=== PATIENT | female | born 1980 | race Caucasian/White ===

== ENCOUNTER 2018-06-01 16:44 | Inpatient (IN) ==
--- NOTE | 2018-06-01 17:30 | P.HPOB ---
History of Present Illness Service: ob Primary Care Physician: NOT REQUIRED Chief Complaint: SROM 1530, UC's q 2 min History of Present Illness: pt is 38 yo 36 4/7 wks w srom 1530 and onset of strong contractions after Weeks Gestation:: 36 Para: 1 : 1 Last menstrual period: 09/18/17 Total # of Miscarriage(s): 0 Total # of Abortions (Spontaneous & Elective): 0 Review of Systems All other systems reviewed negative except as stated in HPI Constitutional: Denies anorexia, Denies body ache(s), Denies chills, Denies daytime sleepiness, Denies excessive sweating, Denies fatigue, Denies fever(s), Denies headache(s), Denies increased appetite, Denies lack of energy, Denies malaise, Denies night sweats, Denies weakness, Denies weight gain, Denies weight loss, Denies other Eyes: Reports blurry vision Ears, Nose, Mouth, and Throat: Denies abnormal hearing, Denies bleeding gums, Denies bad breath, Denies change in voice, Denies dental pain, Denies difficulty swallowing, Denies dizziness, Denies dizziness, Denies dry mouth, Denies ear discharge, Denies ear pain, Denies facial pain, Denies headache(s), Denies hearing loss, Denies hoarseness, Denies lip swelling, Denies nosebleed, Denies mouth lesions, Denies mouth pain, Denies nasal congestion, Denies nasal discharge, Denies nasal obstruction, Denies nasal trauma, Denies neck lump, Denies neck pain, Denies nose pain, Denies pain with swallowing, Denies poor balance, Denies post nasal drip, Denies ringing in the ears, Denies sinus pain, Denies sinus pressure, Denies sore throat, Denies throat swelling, Denies tongue swelling, Denies other Cardiovascular: Denies bluish discoloration of hand/feet, Denies chest pain, Denies chest pain at rest, Denies chest pain with activity, Denies excessive sweating, Denies fainting, Denies fast heart rate, Denies foot swelling, Denies generalized swelling, Denies irregular heart rhythm, Denies leg pain with activity, Denies leg sores, Denies leg swelling, Denies lightheadedness, Denies radiating jaw, neck or arm pain, Denies rapid, pounding, or irregular heartbeat , Denies shortness of breath, Denies shortness of breath with activity, Denies shortness of breath when lying down, Denies shortness of breath causing sudden awakening, Denies slow heart rate, Denies other Respiratory: Denies change in phlegm color, Denies chest congestion, Denies cough, Denies coughing up blood, Denies excessive phlegm production, Denies pain on inspiration, Denies pain with cough, Denies shortness of breath, Denies shortness of breath with activity, Denies snoring, Denies stridor, Denies wheezing, Denies other Gastrointestinal: Denies abdominal pain, Denies belching, Denies black, tarry stools, Denies bloating, Denies bright, red blood in stools, Denies change in bowel habits, Denies constant urge to pass stool, Denies change in stools, Denies coffee ground vomit, Denies constipation, Denies cramping, Denies difficulty swallowing, Denies excessive passing of gas, Denies feeling full early, Denies heartburn, Denies incontinent of stools, Denies loose stools, Denies nausea, Denies pain with swallowing, Denies vomiting, Denies vomiting blood, Denies other Genitourinary: Denies abnormal periods, Denies abnormal vaginal bleeding, Denies absent period, Denies bleeding between periods, Denies blood in urine, Denies difficulty starting urination, Denies difficulty urinating, Denies dribbling after urination, Denies frequent nighttime urination, Denies genital itching, Denies genital lesions, Denies heavy periods, Denies hot flashes, Denies light periods, Denies nipple discharge, Denies painful intercourse, Denies painful periods, Denies painful urination, Denies pelvic pain, Denies prolapse symptoms, Denies sexual problems, Denies side pain, Denies urinary incontinence, Denies urinary urgency, Denies vaginal discharge, Denies vaginal dryness, Denies vaginal odor, Denies vaginal itching, Denies other Skin/Breast: Denies acne, Denies bleeding lesions, Denies boil, Denies breast swelling, Denies breast skin changes, Denies breast pain, Denies breast lump, Denies change in breast shape, Denies change in hair, Denies change in skin color, Denies changing lesions, Denies dry skin, Denies excessive hair growth, Denies hair loss, Denies itching, Denies lesions, Denies nail changes, Denies new lesions, Denies nipple discharge, Denies non-healing lesions, Denies redness , Denies sensitivity to light, Denies rash, Denies skin pain, Denies skin ulcer , Denies sores, Denies stretch perea, Denies unusual bruising, Denies wounds, Denies yellowing of the skin, Denies other Neurologic: Denies abnormal hearing, Denies abnormal movements, Denies abnormal speech, Denies abnormal walking, Denies behavioral changes, Denies burning sensations, Denies confusion, Denies dizziness, Denies fainting, Denies frequent falls, Denies headache(s), Denies lack of coordination, Denies localized weakness, Denies loss of vision, Denies memory loss, Denies numbness, Denies other visual disturbances, Denies radiating pain, Denies restless legs, Denies convulsions, Denies seizure-like activity, Denies sensory deficit, Denies tingling, Denies tingling/numbness/burning sensations, Denies tremor(s), Denies unsteadiness, Denies weakness, Denies other Psychiatric: Denies abnormal sleep pattern, Denies anxiety, Denies behavioral changes, Denies change in appetite, Denies change in sex drive, Denies confusion , Denies depression, Denies difficulty concentrating, Denies hearing things others do not hear, Denies hopelessness, Denies irritability, Denies lack of enjoyment, Denies memory loss, Denies mood swings, Denies panic attacks, Denies paranoia, Denies seeing things others do not see, Denies sensing things others do not sense, Denies tactile hallucinations, Denies thoughts of hurting/killing others, Denies thoughts of hurting/killing yourself, Denies other Endocrine: Denies cold intolerance, Denies excessive sweating, Denies fatigue, Denies flushing, Denies heat intolerance, Denies increased hunger, Denies increased thirst, Denies increased urination, Denies rapid, pounding, or irregular heartbeat, Denies other Allergic/Immunologic: Denies GI upset with certain foods, Denies hives, Denies itchy eyes, Denies lip swelling, Denies seasonal runny nose, Denies throat swelling, Denies tongue swelling, Denies wheezing, Denies other PMFSH - Medical / Surgical Hx Neg / Unobtainable Medical Problems Denied: Yes - Medical History Medical History: Medical History (Last Reviewed 06/01/18 @ 17:23 by Driss Inman MD) Diabetes (Acute) - Tobacco History Second Hand Smoke Exposure: No Smoking Status: Never smoker - Alcohol History How Often Do You Have a Drink Containing Alcohol: Never - Substance Use History Substance History: No History of Abuse - Travel History History of Recent Travel: No Medications and Allergies Allergies Allergy/AdvReac Type Severity Reaction Status Date / Time amoxicillin [From Augmentin] Allergy Itching Verified 05/25/18 18:06 clavulanic acid Allergy Itching Verified 05/25/18 18:06 [From Augmentin] sulfamethoxazole AdvReac Severe ITCHING Unverified 05/30/17 14:30 trimethoprim AdvReac Severe ITCHING Unverified 05/30/17 14:30 Exam Vital signs: Vital Signs 06/01/18 16:58 Pulse Rate 60 Blood Pressure 130/69 - Constitutional no acute distress - Routine HEENT Exam Head: Present: normocephalic Eye: Present: PERRL ENT: Present: mucous membranes moist - Routine Neck Exam Present: supple - Routine Cardiovascular Exam Present: RRR - Routine Abdominal Exam Present: soft, normoactive bowel sounds - Routine Exam External: Present: normal urethra appearance Perineum Description: Intact - Routine Neurological Exam Present: alert, oriented X3, CN II-XII intact Caprini VTE Risk Assessment Caprini VTE Risk Assessment: No/Low Risk (score <= 1) Caprini Risk Assessment Model: Point Value = 1 Point Value = 2 Point Value = 3 Point Value = 5 Age 41-60 Minor surgery BMI > 25 kg/m2 Swollen legs Varicose veins or History of unexplained or recurrent spontaneous Oral contraceptives or hormone replacement Sepsis (< 1 month) Serious lung disease, including pneumonia (< 1 month) Abnormal pulmonary function Acute myocardial infarction Congestive heart failure (< 1 month) History of inflammatory bowel disease Medical patient at bed rest Age 61-74 Arthroscopic surgery Major open surgery (> 45 min) Laparoscopic surgery (> 45 min) Malignancy Confined to bed (> 72 hours) Immobilizing plaster cast Central venous access Age >= 75 History of VTE Family history of VTE Factor V Leiden Prothrombin [id number] Lupus anticoagulant Anticardiolipin antibodies Elevated serum homocysteine Heparin-induced thrombocytopenia Other congenital or acquired thrombophilia Stroke (< 1 month) Elective arthroplasty Hip, pelvis, or leg fracture Acute spinal cord injury (< 1 month) Prophylaxis Regimen: Total Risk Factor Score Risk Level Prophylaxis Regimen 0-1 Low Early ambulation 2 Moderate Order ONE of the following: *Sequential Compression Device (SCD) *Heparin 5000 units SQ BID 3-4 Higher Order ONE of the following medications: *Heparin 5000 units SQ TID *Enoxaparin/Lovenox 40 mg SQ daily (WT < 150 kg, CrCl > 30 mL/min) *Enoxaparin/Lovenox 30 mg SQ daily (WT < 150 kg, CrCl > 10-29 mL/min) *Enoxaparin/Lovenox 30 mg SQ BID (WT < 150 kg, CrCl > 30 mL/min) AND/OR *Sequential Compression Device (SCD) 5 or more Highest Order ONE of the following medications: *Heparin 5000 units SQ TID (Preferred with Epidurals) *Enoxaparin/Lovenox 40 mg SQ daily (WT < 150 kg, CrCl > 30 mL/min) *Enoxaparin/Lovenox 30 mg SQ daily (WT < 150 kg, CrCl > 10-29 mL/min) *Enoxaparin/Lovenox 30 mg SQ BID (WT < 150 kg, CrCl > 30 mL/min) AND *Sequential Compression Device (SCD) Assessment and Plan - Diagnosis (1) SROM (spontaneous rupture of membranes) Status: Acute (2) Cystic fibrosis Code(s): E84.9 - Cystic fibrosis, unspecified Status: Chronic (3) Diabetes in Code(s): O24.919 - Unspecified diabetes mellitus in , unspecified trimester Status: Chronic (4) Low back pain during Code(s): O26.899 - Other specified related conditions, unspecified trimester; M54.5 - Low back pain Status: Chronic (5) Pelvic pressure in Code(s): O26.899 - Other specified related conditions, unspecified trimester; R10.2 - Pelvic and perineal pain Status: Acute (3) Diabetes in Qualifiers: Diabetes in type: gestational Gestational diabetes mellitus control : insulin-controlled Trimester: third trimester Qualified Code(s): O24.414 - Gestational diabetes mellitus in , insulin controlled
[2018-06-01] MEDS ORDERED: Oxytocin 30 Units/500ml Premix 30 UNITS/500 ML BAG IV.SIG ONE (17:34)
[2018-06-01] MEDS ORDERED: Sodium Chlor 0.9% Inj 500 ML IV.SIG PRN (17:34)
[2018-06-01] MEDS ORDERED: Sod Chloride 0.9% Inj 1,000 ML IV.CONT PRN (17:34)
[2018-06-01] MEDS ORDERED: fentaNYL Citrate Inj 100 MCG/2 ML Ampul IV.PUSH PRN ×2 (17:34)
[2018-06-01] MEDS ORDERED: Penicillin G Potassium Inj 5,000,000 UNIT in Sodium Chloride 0.9% Inj 100 ML IV.SIG ONE (17:34)
[2018-06-01] MEDS ORDERED: Naloxone Inj 0.4 MG/ML Vial IV.PUSH PRN (17:34)
--- NOTE | 2018-06-01 17:40 | ED ---
History of Present Illness Service: ob Primary Care Physician: NOT REQUIRED Chief Complaint: SROM 1530, UC's q 2 min History of Present Illness: pt is 38 yo 36 4/7 wks w srom 1530 and onset of strong contractions after Weeks Gestation:: 36 - Inpatient Certification I certify that the inpatient services were ordered in accordance with Medicare regulations governing the order. This includes certification that hospital inpatient services are reasonable and necessary and in the case of services not specified as inpatient-only under 42 CFR 419.22(n), that they are appropriately provided as inpatient services in accordance to with the 2-midnight benchmark under 43 CFR 412.3(e) Estimated Total Length of Stay (Days): 3 Plans for Post Hospital Care: Home PMFSH - Medical / Surgical Hx Neg / Unobtainable Medical Problems Denied: Yes - Medical History Medical History: Medical History (Last Reviewed 06/01/18 @ 17:23 by Driss Inman MD) Diabetes (Acute) - Tobacco History Second Hand Smoke Exposure: No Smoking Status: Never smoker - Alcohol History How Often Do You Have a Drink Containing Alcohol: Never - Substance Use History Substance History: No History of Abuse - Travel History History of Recent Travel: No Medications and Allergies Allergies Allergy/AdvReac Type Severity Reaction Status Date / Time amoxicillin [From Augmentin] Allergy Itching Verified 05/25/18 18:06 clavulanic acid Allergy Itching Verified 05/25/18 18:06 [From Augmentin] sulfamethoxazole AdvReac Severe ITCHING Unverified 05/30/17 14:30 trimethoprim AdvReac Severe ITCHING Unverified 05/30/17 14:30 Exam Vital signs: Vital Signs 06/01/18 16:58 Pulse Rate 60 Blood Pressure 130/69 Assessment and Plan - Diagnosis (1) SROM (spontaneous rupture of membranes) Status: Acute (2) Cystic fibrosis Code(s): E84.9 - Cystic fibrosis, unspecified Status: Chronic (3) Diabetes in Code(s): O24.919 - Unspecified diabetes mellitus in , unspecified trimester Status: Chronic Qualifiers: Diabetes in type: gestational Gestational diabetes mellitus control: insulin-controlled Trimester: third trimester Qualified Code(s): O24.414 - Gestational diabetes mellitus in , insulin controlled (4) Low back pain during Code(s): O26.899 - Other specified related conditions, unspecified trimester; M54.5 - Low back pain Status: Chronic (5) Pelvic pressure in Code(s): O26.899 - Other specified related conditions, unspecified trimester; R10.2 - Pelvic and perineal pain Status: Acute Discharge Plan - Discharge Disposition Patient Disposition: 30 Still Patient - Physicians Team ED Provider: Driss Inman Primary Care Provider: NOT REQUIRED,
[2018-06-01] MEDS ORDERED: Citric Acid/Sodium Citrate Liq 30 ML UDC PO SCH (17:45)
[2018-06-01 18:43] LABS: Baso % (Auto) 0.2 % (0.0-2.0); Eos # (Auto) 0.1 th/mm3 (0.0-0.4); Eos % (Auto) 1.1 % (0.0-4.0); Hematocrit 35.5 % (35.0-46.0); Hemoglobin 12.5 gm/dL (11.6-15.3); Lymph # (Auto) 2.5 th/mm3 (1.0-4.8); Lymph % (Auto) 25.3 % (9.0-44.0); Mean Corpuscular HGB Conc 35.4 % (32.0-36.0); Mean Corpuscular Hemoglobin 31.7 pg (27.0-34.0); Mean Corpuscular Volume 89.7 fL (80.0-100.0); Mean Platelet Volume 8.8 fL (7.0-11.0); Mono # (Auto) 0.7 th/mm3 (0.0-0.9); Neut # (Auto) 6.5 th/mm3 (1.8-7.7); Neut % (Auto) 66.4 % (16.0-70.0); Platelet Count 169 th/mm3 (150-450); Red Blood Count 3.95 mil/mm3 (4.00-5.30); Red Cell Distribution Width 12.7 % (11.6-17.2); White Blood Count 9.7 th/mm3 (4.0-11.0)
[2018-06-01 18:47] LABS: Amorphous Sediment,Urine Rare /hpf; Bacteria,Urine Occasional /hpf; Bilirubin,Urine Negative (Negative); Clarity,Urine Hazy (Clear); Color,Urine Yellow (Yellw/Straw); Glucose,Urine (UA) Negative (Negative); Leukocyte Esterase,Urine Trace (Negative); Mucus,Urine Few /lpf (Occasional); Nitrite,Urine Negative (Negative); Specific Gravity,Urine 1.005 (1.002-1.035); Squamous Epithelial Cell,Urine 7 /hpf (0-5)
[2018-06-01 18:49] LABS: Amphetamine Urine With Conf Neg (Neg); Benzodiazepine Urine With Conf Neg (Neg)
[2018-06-01] MEDS ORDERED: fentaNYL 2MCG-Bupiv 0.125% Epi 150 ML EPIDURAL ONE (19:34)
[2018-06-01] MEDS ORDERED: Bupivacaine PF 0.25% Inj 10 ML Vial ONE (20:23)
[2018-06-01] MEDS ORDERED: Penicillin G Potassium Inj 2,500,000 UNIT in Sodium Chlor 0.9% Inj 100 ML IV.SIG SCH (21:38)
[2018-06-02] MEDS ORDERED: Benzocaine 20% Top Spray 60 ML Can TOPICAL PRN (00:22)
[2018-06-02] MEDS ORDERED: Acetaminophen 325 MG Tablet PO PRN (00:22)
[2018-06-02] MEDS ORDERED: Witch Hazel 50%/Glyderin 12.5% 40 Pad Jar RECTAL PRN (00:22)
[2018-06-02] MEDS ORDERED: Naloxone Inj 0.4 MG/ML Vial IV.PUSH PRN (00:22)
[2018-06-02] MEDS ORDERED: Zolpidem Tartrate 5 MG Tablet PO PRN (00:22)
[2018-06-02] MEDS ORDERED: Bisacodyl 10 MG Supp RECTAL PRN (00:22)
[2018-06-02] MEDS ORDERED: Oxytocin 30 Units/500ml Premix 30 UNITS/500 ML BAG IV.CONT SCH (00:30)
--- NOTE | 2018-06-02 00:41 | P.OBDELI ---
Weeks Gestation: 36 Patient Started Active Labor: Yes Active Labor Start Date: 06/01/18 Medical Induction of Labor: No Artificial Rupture of Membrane: No Anesthesia: Epidural Episiotomy: midline Vaginal Delivery: Normal Presentation: Occiput anterior, Vertex Nuchal Cord: x1 Delayed Cord Clamping (45 sec): Yes Placenta: Spontaneous delivery, Intact, 3 vessel cord Laceration: Episiotomy Repair: Vicryl running Estimated blood loss (mL): 350 : Female Female A Weight: 2.211 kg score (1 min): 8 score (5 min): 9 Additional Information: Nice delivery of Jannette. Tight nucal cord reduced and a true know in the cord. 2nd degree MLE repaired with 3=0 vicryl.
[2018-06-02] MEDS ORDERED: Famotidine 20 MG Tablet PO SCH (06:30)
[2018-06-02] MEDS: Lactobacillus Acidophilus/L. Spores Tablet PO SCH (10:25)
[2018-06-02] MEDS: Lipase/Protease/Amylase 12/38/60 DR Capsule PO SCH ×4 (10:25→20:19)
[2018-06-02] MEDS: Prenatal Vit/Ca/Iron/Folic Acid Tablet PO SCH (10:26)
[2018-06-02] MEDS: Linezolid 600 MG Tablet PO SCH ×2 (10:26→20:18)
[2018-06-02] MEDS: DORNASE ALFA 2.5 MG/2.5 ML NEB SCH ×2 (10:26→20:20)
[2018-06-02] MEDS: Senna/Docusate Sodium 8.6/50 MG Tablet PO SCH (10:26)
--- NOTE | 2018-06-02 11:18 | P.PNOB ---
Subjective Post day: 1 Interval history: Doing well Baby is great having some sugar issues. Bleeding is normal Pain is well controlled Objective Vital Signs/I&O: Vital Signs 06/01/18 16:58 06/01/18 18:15 06/01/18 19:03 Temperature 98.0 F Pulse Rate 60 58 L Respiratory Rate 18 Blood Pressure 130/69 130/78 06/01/18 19:15 06/01/18 20:00 06/01/18 20:03 Temperature Pulse Rate 69 Respiratory Rate 20 22 2 L Blood Pressure 136/83 06/01/18 20:05 06/01/18 20:10 06/01/18 20:15 Temperature Pulse Rate 85 68 83 Respiratory Rate Blood Pressure 148/83 H 126/81 124/68 06/01/18 20:21 06/01/18 20:25 06/01/18 20:45 Temperature Pulse Rate 73 73 80 Respiratory Rate Blood Pressure 121/84 116/75 120/78 06/01/18 20:50 06/01/18 21:05 06/01/18 21:07 Temperature 97.8 F Pulse Rate 70 Respiratory Rate 18 18 Blood Pressure 114/73 06/01/18 22:30 06/01/18 23:10 06/01/18 23:25 Temperature Pulse Rate 72 72 97 H Respiratory Rate Blood Pressure 119/75 125/75 151/82 H 06/01/18 23:30 06/02/18 00:01 06/02/18 00:20 Temperature Pulse Rate 95 H 77 67 Respiratory Rate 18 Blood Pressure 135/84 127/70 125/78 06/02/18 00:30 06/02/18 01:00 06/02/18 01:30 Temperature Pulse Rate 78 86 65 Respiratory Rate 20 Blood Pressure 127/83 128/78 121/74 06/02/18 02:15 06/02/18 08:00 Temperature 98.1 F 98.1 F Pulse Rate 68 70 Respiratory Rate 17 20 Blood Pressure 119/75 121/69 Result Diagrams: 06/01/18 18:05 Objective Remarks: GENERAL: Well-nourished, well-developed patient. CARDIOVASCULAR: Regular rate and rhythm without murmurs, gallops, or rubs. RESPIRATORY: Breath sounds equal bilaterally. No accessory muscle use. ABDOMEN/GI: Abdomen soft, non-tender. Fundus: Firm, non-tender at umbilicus. GENITOURINARY: Light to moderate bleeding. EXTREMITIES: No cyanosis or edema, non-tender, without signs of DVT. Medications and IVs: Active Medications Acetaminophen (Tylenol) 650 mg PO Q4H PRN PRN Reason: PAIN SCALE 1 TO 2 Al Hydroxide/Mg Hydroxide (Milk Of Magnesia Liq) 30 ml PO Q12H PRN PRN Reason: Mild Constipation Lipase/Protease/Amylase (Roberta Stewart ) 3 cap PO QID [facility] Last Admin: 06/02/18 10:25 Dose: Not Given Benzocaine (Americaine 20% Top [place]) 1 spray TOPICAL Q4H PRN PRN Reason: For Perineum Discomfort Bisacodyl (Dulcolax Supp) 10 mg RECTAL DAILY PRN PRN Reason: SEVERE CONSITIPATION Diphtheria/Pertussis/Tetanus Vacc (Boostrix Vaccine Inj) 0.5 ml IM .ONCE ONE Stop: 06/02/18 16:01 Dornase Luis (Pulmozyme Neb) 2.5 mg NEB BID NEB [facility] Last Admin: 06/02/18 10:26 Dose: Not Given Famotidine (Pepcid) 10 mg PO BID [facility] Ibuprofen (Motrin) 800 mg PO Q8H PRN PRN Reason: For cramping Lactobacillus Acidophilus (Lactinex) 1 tab PO DAILY [facility] Last Admin: 06/02/18 10:25 Dose: Not Given Lactulose (Lactulose Liq) 30 ml PO DAILY PRN PRN Reason: SEVERE CONSITIPATION Linezolid (Zyvox) 600 mg PO BID [facility] Last Admin: 06/02/18 10:26 Dose: Not Given Measles/Mumps/Rubella Vaccine Live (M-M-R Ii Vaccine Inj) 0.5 ml SQ .ONCE ONE Stop: 06/02/18 16:01 Naloxone HCl (Narcan Inj) 0.1 mg IV.PUSH Q2M PRN PRN Reason: for opiate reversal Ondansetron HCl (Zofran Odt) 4 mg PO Q6H PRN PRN Reason: NAUSEA OR VOMITING Vit/Calcium/Iron/Folic Ac (Stuartnatal Plus 3) 1 tab PO DAILY [facility] Last Admin: 06/02/18 10:26 Dose: Not Given Senna/Docusate Sodium (Soila-Colace) 1 tab PO BID [facility] Last Admin: 06/02/18 10:26 Dose: Not Given Sennosides (Senokot) 17.2 mg PO Q12H PRN PRN Reason: Moderate Constipation Sodium Chloride (Ns Flush) 2 ml IV.FLUSH BID [facility] Last Admin: 06/02/18 10:25 Dose: 2 ml Sodium Chloride (Ns Flush) 2 ml IV.FLUSH PRN PRN PRN Reason: FLUSH AFTER USING IV ACCESS Witch Tanya/Glycerin (Tucks Pads) 1 applicatio RECTAL QID PRN PRN Reason: HEMORRHOIDS Zolpidem Tartrate (Ambien) 5 mg PO HS PRN PRN Reason: SLEEP Assessment and Plan - Plan PPD #1 GBS positive CF Has MRSA and been on antibiotics for over a week. DM was only on 6 units of levimir,,told her to start her BS again when she gets home. Home tomorrow Routine care
[2018-06-02] MEDS ORDERED: Measles/Mumps/Rubella Vaccine Inj 0.5 ML Vial SQ ONE (16:00)
[2018-06-02] MEDS ORDERED: Diphtheria/Tetanus/Pertussis Vaccine Inj 0.5 ML Syringe IM ONE (16:00)
[2018-06-02] MEDS: Famotidine 20 MG Tablet PO SCH (20:20)
[2018-06-03] MEDS: Lipase/Protease/Amylase 12/38/60 DR Capsule PO SCH ×3 (09:00→17:42)
[2018-06-03] MEDS: DORNASE ALFA 2.5 MG/2.5 ML NEB SCH (09:00)
[2018-06-03] MEDS: Famotidine 20 MG Tablet PO SCH (09:00)
[2018-06-03] MEDS: Prenatal Vit/Ca/Iron/Folic Acid Tablet PO SCH (09:00)
[2018-06-03] MEDS: Senna/Docusate Sodium 8.6/50 MG Tablet PO SCH (09:00)
[2018-06-03] MEDS: Lactobacillus Acidophilus/L. Spores Tablet PO SCH (09:00)
[2018-06-03] MEDS: Linezolid 600 MG Tablet PO SCH (09:00)
[2018-06-03 10:40] VITALS: BP 121/74; PULSE 70; RESP 20; TEMP 97.9
--- NOTE | 2018-06-03 14:56 | P.PNOB ---
Subjective Post day: 2 Interval history: Doing well Baby is fine Bleeding is normal Pain is well controlled. Objective Vital Signs/I&O: Vital Signs 06/02/18 16:34 06/02/18 20:00 06/03/18 10:20 Temperature 96.9 F L 97.9 F Pulse Rate 70 76 70 Respiratory Rate 18 16 20 Blood Pressure 119/75 129/80 121/74 Intake & Output 06/02/18 06/03/18 06/03/18 18:59 06:59 18:59 Weight 70 kg Other: Weight On Admission 70 kg Result Diagrams: 06/01/18 18:05 Objective Remarks: GENERAL: Well-nourished, well-developed patient. CARDIOVASCULAR: Regular rate and rhythm without murmurs, gallops, or rubs. RESPIRATORY: Breath sounds equal bilaterally. No accessory muscle use. ABDOMEN/GI: Abdomen soft, non-tender. Fundus: Firm, non-tender at umbilicus. GENITOURINARY: Light to moderate bleeding. EXTREMITIES: No cyanosis or edema, non-tender, without signs of DVT. Medications and IVs: Active Medications Acetaminophen (Tylenol) 650 mg PO Q4H PRN PRN Reason: PAIN SCALE 1 TO 2 Al Hydroxide/Mg Hydroxide (Milk Of Sherrie Meneses) 30 ml PO Q12H PRN PRN Reason: Mild Constipation Lipase/Protease/Amylase (Roberta Stewart ) 3 cap PO QID [facility] Last Admin: 06/03/18 09:00 Dose: Not Given Benzocaine (Americaine 20% Top [place]) 1 spray TOPICAL Q4H PRN PRN Reason: For Perineum Discomfort Last Admin: 06/02/18 19:16 Dose: 1 spray Bisacodyl (Dulcolax Supp) 10 mg RECTAL DAILY PRN PRN Reason: SEVERE CONSITIPATION Dornase Luis (Pulmozyme Neb) 2.5 mg NEB BID NEB [facility] Last Admin: 06/03/18 09:00 Dose: Not Given Famotidine (Pepcid) 10 mg PO BID [facility] Last Admin: 06/03/18 09:00 Dose: Not Given Ibuprofen (Motrin) 800 mg PO Q8H PRN PRN Reason: For cramping Last Admin: 06/03/18 00:36 Dose: 800 mg Lactobacillus Acidophilus (Lactinex) 1 tab PO DAILY [facility] Last Admin: 06/03/18 09:00 Dose: Not Given Lactulose (Lactulose Liq) 30 ml PO DAILY PRN PRN Reason: SEVERE CONSITIPATION Linezolid (Zyvox) 600 mg PO BID [facility] Last Admin: 06/03/18 09:00 Dose: Not Given Naloxone HCl (Narcan Inj) 0.1 mg IV.PUSH Q2M PRN PRN Reason: for opiate reversal Ondansetron HCl (Zofran Odt) 4 mg PO Q6H PRN PRN Reason: NAUSEA OR VOMITING Vit/Calcium/Iron/Folic Ac (Stuartnatal Plus 3) 1 tab PO DAILY [facility] Last Admin: 06/03/18 09:00 Dose: Not Given Senna/Docusate Sodium (Soila-Colace) 1 tab PO BID [facility] Last Admin: 06/03/18 09:00 Dose: Not Given Sennosides (Senokot) 17.2 mg PO Q12H PRN PRN Reason: Moderate Constipation Sodium Chloride (Ns Flush) 2 ml IV.FLUSH BID [facility] Last Admin: 06/03/18 09:00 Dose: Not Given Sodium Chloride (Ns Flush) 2 ml IV.FLUSH PRN PRN PRN Reason: FLUSH AFTER USING IV ACCESS Witch Tanya/Glycerin (Tucks Pads) 1 applicatio RECTAL QID PRN PRN Reason: HEMORRHOIDS Last Admin: 06/02/18 19:16 Dose: 1 applicatio Zolpidem Tartrate (Ambien) 5 mg PO HS PRN PRN Reason: SLEEP Assessment and Plan - Plan PPD #2 GBS positive CF Has MRSA and been on antibiotics for over a week. Chest exam is normal with excellent air movement. DM will start checking her BS tomorrow and call her endocrine for instructions when to restart her insulin. Home tomorrow Routine care
== END 2018-06-03 20:30 | disposition home or self-care (01) ==
LOC: HOBED 16:44 → H2E 17:00 → H1EA 06-02 02:23
PROVIDERS: ADMIT Obstetrics & Gynecology; ATTEND Obstetrics & Gynecology